=== PATIENT | female | born 1965 | race Two or more races ===

== ENCOUNTER → 2024-02-04 | Outpatient (CLI) | payer MEDICAID | END | disposition home or self-care (01) | LOC: LAB 13:53 | PROVIDERS: ATTEND Internal Medicine | DX: N39.0 Urinary tract infection, site not specified (principal) | CPT/HCPCS: 87086 ==

== ENCOUNTER 2025-06-22 07:58 | Outpatient (CLI) | payer MEDICAID ==
[~2025-06-22] VITALS: Ht 152.4 cm; Wt 74.8 kg
[2025-06-22] MEDS: REGADENOSON 0.4 MG/5 ML SYRG IV ONE ×2 (10:24→10:30)
--- NOTE | 2025-06-28 08:58 | DVHSR ---
APPROVED REPORT Exam: Nuclear Stress Test Indication: Abnormal EKG BMI: 0 Medical History Allergies: No known drug allergies Stress Test Details Stress Test: Pharmacologic stress testing performed using 0.4 mg of regadenoson per 5 mL given IV ov er 10 seconds. HR Resting HR: 52 bpmMax Heart Rate (APMHR): 159.992487 bpm Max HR Achieved: 86 bpmTarget HR (85% APMHR): 135.624525 bpm % of APMHR: 54.09 Recovery HR: 70 bpm BP Resting BP: 96/57 mmHg Recovery BP: 90/50 mmHg ECG Resting ECG: Sinus Bradycardia Clinical Reason for Termination: Completed protocol Nurse Comments Recieved pt. from [email or web address]. A/Ox4 on RA. Connected to alarm security or surveillance monitor, VS stable. Rt IV flushes well. Reviewed POC. Pt. verbalized understanding of procedure including risks and side effects, agrees for stress testing. Lexiscan stress test performed per protocol. Synoste Oy administered Cardiolite. Pt. tolerated well . Pt. stable, no change on exam. VS returned to baseline. Transferred to [email or web address] via wheelchair w Stress ECG Conclusion lvef 74% normal perfusion scan NM EXAM: Myocardial Perfusion REST/STRESS Imaging Protocol: Rest Tc-99m/Stress Tc-99m 1 day Resting Data Rest SPECT myocardial perfusion imaging was performed in supine position 60 minutes following the int ravenous injection of 9.2 mCi of Tc-99m Sestamibi. Time of rest injection: 09:00 Date: 06/22/2025 Time of rest imagin:00 Date: 06/22/2025 Administration Route: IV Administration Site: Left Hand Pharmacologic Stress Pharmacologic stress test was performed by injecting Regadenoson 0.4 mg IV push followed by the intra venous injection of 30.6 mCi of Tc-99m Sestamibi. Time of stress injection: 10:30 Date: 06/22/2025 Time of stress imagin:30 Date: 06/22/2025 Administration Route: IV Administration Site: Left Hand Gated Stress SPECT was performed 60 minutes after stress injection. The images were gated to evaluate regional wall motion and calculate left ventricular ejection fracti on. Stress only was performed in the Supine position. Nuclear Conclusion Nuclear Findings: negative for ischemia lvef 74% normal perfusion scan
== END 2025-06-22 17:00 | disposition home or self-care (01) ==
LOC: XYW 07:58
PROVIDERS: ATTEND Internal Medicine
DX: I49.8 Other specified cardiac arrhythmias (principal); R00.1 Bradycardia, unspecified
CPT/HCPCS: 78452; 93017; A9500; J2785